=== PATIENT | male | born 2000 | race Caucasian/White ===

== ENCOUNTER → 2022-06-01 14:49 | Outpatient (CLI) | payer SELFPAY ==
--- NOTE | ~2022-06-01 | XR_ITS ---
EXAM: XR foot LT min 3V DATE: 06/01/2022 15:40 HISTORY: M25.572 - Pain in left ankle and joints of left foot . COMPARISON: X-ray ankle, same date. FINDINGS: Normal mineralization. Curvilinear osseous fragment along the superior margin of the navic ular. No lytic or blastic lesion. Joint spaces are maintained. No erosion or periosteal change. Soft tissues within normal limits. IMPRESSION: Calcaneonavicular capsular avulsion fracture, may be chronic or acute, correlate with his tory of remote or recent trauma. Reviewed, dictated and finalized at location K. LATORY ATTORNEY IMPRESSION: Calcaneonavicular capsular avulsion fracture, may be chronic or acu te, correlate with history of remote or recent trauma.
--- NOTE | ~2022-06-01 | XR_ITS ---
XR ankle LT min 3V 06/01/2022 15:40 INDICATION: Left ankle pain PROCEDURE: 4 views left ankle COMPARISON: No prior studies for comparison. FINDINGS: Fracture, dislocation or subluxation is not identified. Ankle mortise intact. There is mild lateral soft tissue swelling. No foreign bodies are identified. IMPRESSION: 1: NO ACUTE BONE OR JOINT ABNORMALITY IDENTIFIED. Reviewed, dictated and finalized at location B. NEERING FACULTY
== END ==
PROVIDERS: PCP Family Medicine Adolescent Medicine; Visit Provider Physician Assistant
DX: M25.572 Pain in left ankle and joints of left foot (principal); S92.002A Unspecified fracture of left calcaneus, initial encounter for closed fracture
CPT/HCPCS: 73610; 73630

== ENCOUNTER 2024-01-30 10:36 | Emergency (ER) | payer SELFPAY ==
[2024-01-30 10:45] VITALS: BP 132/77; PULSE 66; RESP 16; TEMP 36.7; O2SAT 99
--- NOTE | 2024-01-30 10:58 | ED.GENADULT ---
HPI - General Adult General Chief complaint: Ear Stated complaint: Ear Pain Time Seen by Provider: 01/30/24 10:59 Source: patient Mode of arrival: ambulatory Limitations: no limitations History of Present Illness HPI narrative: 23-year-old male patient presents to the [facility] with complaints of left-sided ear pain for the past 2-3 days. Patient states he has had some nasal congestion sinus pressure and a cough. Denies fevers, body aches or chills. Denies any abdominal pain, nausea, vomiting or diarrhea. Patient denies any chest pain or shortness of breath. Patient states he has only been taking some [id number] vitamins for his symptoms. Mother states he has had tubes in the past as a child. Related Data Allergies Allergy/AdvReac Type Severity Reaction Status Date / Time No Known Allergies Allergy Mild Verified 01/30/24 11:09 Review of Systems Review of Systems: CONSTITUTIONAL: Denies fever, chills, or sweats. EYES: Denies visual changes, redness, or discharge. ENT: Positive rhinorrhea, congestion, denies sore throat, positive left otalgia. CARDIOVASCULAR: Denies chest pain, palpitations, or edema. RESPIRATORY: positive cough denies dyspnea. GASTROINTESTINAL: Denies abdominal pain, nausea, vomiting, or diarrhea. GENITOURINARY: Denies dysuria or hematuria. SKIN: Denies rash or itching. MUSCULOSKELETAL: Denies back pain, joint pain, or myalgia. NEUROLOGIC: Denies headache, numbness, or weakness. PSYCHIATRIC: Denies anxiety or depression. [facility] Past Medical History Medical History (Updated 01/30/24 @ 11:19 by LILIYA Pagan) Asthma Avulsion fracture of navicular bone of foot with delayed healing Chalazion left lower eyelid Ingrown toenail of both feet Left serous otitis media Palpitations Surgical History Surgical History (Updated 01/30/24 @ 11:00 by LILIYA Pagan) H/O tympanostomy Social History Social History Smoking status: Former smoker Tobacco type: e-cigarettes/vaping Comments At the time of my signature I agree with nursing past medical history, surgical, social, and family history. There is no relevant family history pertinent to the presenting complaint. Exam Narrative: GENERAL: Well-appearing, well-nourished, and in no acute distress. HEAD: Normocephalic, atraumatic. EYES: PERRLA and EOMI. ENT: Nares clear, no rhinorrhea or epistaxis. Mucous membranes moist. posterior pharynx no erythema, tonsillar enlargement exudates or lesions present. The left ear canal is very swollen with white pus unable to visualize completely the canal is unable to visualize the tympanic membrane. The right ear canal does have some liquid he lacks noted to the canal and the tympanic membrane does appear bulgy and erythematous. NECK: Supple. No lymphadenopathy CHEST: Clear to auscultation. No respiratory distress. HEART: Regular rate and rhythm. No murmur heard. Normal peripheral pulses. ABDOMEN: Soft, nontender, nondistended, normal active bowel sounds. EXTREMITIES: Normal range of motion. No edema. SKIN: Warm, dry, no rash. NEURO: No focal deficits. Alert and oriented x3. Course Course Level of Care: Express Care Visit Vital Signs Vital signs: Vital Signs Temperature 36.7 C 01/30/24 10:45 Pulse Rate 66 01/30/24 10:45 Respiratory Rate 16 01/30/24 10:45 Blood Pressure 132/77 01/30/24 10:45 Pulse Oximetry 99 01/30/24 10:45 Temperature 36.7 C 01/30/24 10:45 Pulse Rate 66 01/30/24 10:45 Respiratory Rate 16 01/30/24 10:45 Blood Pressure 132/77 01/30/24 10:45 Pulse Oximetry 99 01/30/24 10:45 Vital signs reviewed. The patient has been informed that they may have pre-hypertension or Hypertension based on a BP reading in the department. I recommend that the patient call the primary care provider listed on their discharge instructions or a physician of their choice this week to arrange follow up for further evaluation of possible pre-hypertension or Hypertension Medical Decision Making MDM Narrative Medical decision making narrative: Plan of care for patient is to discharge home with oral antibiotics for a otitis media infection of the right ear as well as antibiotic ear drops for the left ear. Discussed with them I also recommend that he takes an [id number]-[id number] antihistamine something such as Zyrtec, Claritin or Porsha and may take Tylenol and ibuprofen as needed for the pain. Differential Diagnosis Differential Diagnosis: Differential diagnosis: Otitis media, otitis externa, perforated TM, infection of the outer ear, foreign body or cerumen impaction, ruptured TM, acute mastoiditis, ligament otitis externa, dehydration, pneumonia, sepsis, dental or intraoral infection, TMJ dysfunction Vital Signs Vital Signs: Vital Signs Temperature 36.7 C 01/30/24 10:45 Pulse Rate 66 01/30/24 10:45 Respiratory Rate 16 01/30/24 10:45 Blood Pressure 132/77 01/30/24 10:45 Pulse Oximetry 99 01/30/24 10:45 Temperature 36.7 C 01/30/24 10:45 Pulse Rate 66 01/30/24 10:45 Respiratory Rate 16 01/30/24 10:45 Blood Pressure 132/77 01/30/24 10:45 Pulse Oximetry 99 01/30/24 10:45 Critical Care Time Critical Care Time Critical Care Time: No Discharge Plan Discharge Clinical Impression: Left otitis externa, Acute right otitis media Patient Disposition: Home, Self-Care Condition: Stable Instructions: Antibiotic Form, Swimmer's Ear (ED), Ear Infection (ED) Additional Instructions: An ear infection is also called otitis media. An ear infection may be caused by blocked or swollen eustachian tubes. Eustachian tubes connect the middle ear to the back of the nose and throat. They drain fluid from the middle ear. With an ear infection, fluid builds up and is infected by germs. The germs grow easily in fluid trapped behind the eardrum. DISCHARGE INSTRUCTIONS: Call 911 or have someone call 911 for the following: You have a seizure. Return to the emergency department if: You have a fever and a stiff neck. Contact your healthcare provider if: Your ear pain gets worse or does not go away, even after treatment. The outside of your ear is red or swollen. You are vomiting or have diarrhea. You have fluid coming from your ear. You have questions or concerns about your condition or care. Medicines: Acetaminophen decreases pain and fever. It is available without a doctor's order. Ask how much to take and how often to take it. Follow directions. Read the labels of all other medicines you are using to see if they also contain acetaminophen, or ask your doctor or pharmacist. Acetaminophen can cause liver damage if not taken correctly. Do not use more than 4 grams (4,000 milligrams) total of acetaminophen in one day. NSAIDs , such as ibuprofen, help decrease swelling, pain, and fever. This medicine is available with or without a doctor's order. NSAIDs can cause stomach bleeding or kidney problems in certain people. If you take blood thinner medicine, always ask your healthcare provider if NSAIDs are safe for you. Always read the medicine label and follow directions. Ear drops help treat your ear pain. Antibiotics help treat a bacterial infection that caused your ear infection. Take your medicine as directed. Contact your healthcare provider if you think your medicine is not helping or if you have side effects. Tell him or her if you are allergic to any medicine. Keep a list of the medicines, vitamins, and herbs you take. Include the amounts, and when and why you take them. Bring the list or the pill bottles to follow-up visits. Carry your medicine list with you in case of an emergency. Prevent an ear infection: Wash your hands often. Use soap and water. Wash your hands after you use the bathroom, change a child's diapers, or sneeze. Wash your hands before you prepare or eat food. Handwashing Stay away from people who are ill. Some germs are easily and quickly spread through contact. Prescriptions: New amoxicillin-pot clavulanate 875-125 mg tablet 1 tablet PO Q12H 7 Days Qty: 14 0RF ofloxacin 0.3 % drops 10 drp EACH EAR DAILY 7 Days Qty: 10 0RF No Action metoprolol succinate 50 mg tablet extended release 24 hr 50 mg PO DAILY Qty: 30 5RF Follow-up/Referrals: Ubaldo Richardson MD [Primary Care Provider] - Time of Disposition: 11:20
== END 2024-01-30 11:21 | disposition home or self-care (01) ==
PROVIDERS: Emergency Provider Nurse Practitioner Family; PCP Family Medicine Adolescent Medicine
DX: H60.92 Unspecified otitis externa, left ear (principal); H66.91 Otitis media, unspecified, right ear; J45.909 Unspecified asthma, uncomplicated
CPT/HCPCS: 99213; G0463

== ENCOUNTER 2024-08-22 21:53 | Emergency (ER) | payer SELFPAY ==
[2024-08-22 21:55] VITALS: BP 127/96; PULSE 87; RESP 20; TEMP 36.5; O2SAT 100
--- OUTSIDE RECORDS SUMMARY | 2024-08-22 21:55 | XMS_ITS | Clinical Summary ---
Author Organization [facility] Address [address] [address] Care Team Providers Care Environmental Geologist Name Role Phone Unavailable Primary Care Provider Unavailabl e Source Comments [facility] [employer],non-owned Affiliates and Associated Physician Practices is amultiple site organization consisting of ambulatory clinics and hospital sitesin [place], [place], [place] and [place]. This disclosure is being madepursuant to the Care Everywhere program and may not contain all information available regarding this patient. 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 Gender Identity Not on file Sexual Orientation Not on file Plan of Treatment Health Maintenance Due Date Last Done Comments HIV SCREENING 2017 HPV VACCINE (1 - Male 3-dose series) 2017 MENINGOCOCCAL (Group B) VACC INE SHARED DECISION-MAKING (1 of 2 - Standard) 2018 HEPATITIS C SCREENING 08/28/2020 DTAP/TDAP/TD VACCINES (1 - Tdap) 2021 HEPATITIS B VACCINE (1 of 3 - 19+ 3-dose series) 2021 COVID-19 VACCINE (1 - 2023-2 5 season) 2023 DEPRESSION SCREENING 04/05/2024 INFLUENZA VACCINE (Season Ended) 2024 ZOSTER VACCINE (1 of 2) 2052 HIB VACCINE Aged Out No longer eligi ble based on patient's age to complete this topic MENINGOCOCCAL GROUPS A/C/Y/W VACCINE Aged Out No longer eligible b ased on patient's age to complete this topic PNEUMOCOCCAL VACCINE Aged Out No long er eligible based on patient's age to complete this topic
--- OUTSIDE RECORDS SUMMARY | 2024-08-22 21:55 | XMS_ITS | Continuity of Care Document ---
Author Organization [facility] Address [address] [place] [address] Phone Care Team Providers Care Crimp Setter Name Role Phone Ubaldo Grove Unavailable Unavailable Allergies, Adverse Reactions, Alerts Substance Reaction Status Criticality No Known Allergies Active No Inform ation Procedures Procedure Date OFFICE/OUTPATIENT VISIT EST RADEX FOOT COMPL MINIMUM 3 VIEWS 2023 OFFICE/OUTPATIENT VISIT NEW Advance Directives Directive Yes / No Effective Date File Name No Information Encounters Encounter Description Practice Location Reason(s) For Visit Diagnoses Date Provider Providers Copied on Encounter OFFICE/OUTPAT IENT VISIT EST [facility] , [address], [place], [address], [place] tel:[phone] [facility] [place] Kang's neuroma of left foot 0 5 [address]. [address], [place], [place], [id number] , [place]. tel:[phone] Referring Provider: Ubaldo Richardson S, [address] [place] [address], [address]. tel:[phone] OFFICE/OUTPAT IENT VISIT NEW [facility] , [address], [place], [address], [place] tel:[phone] [facility] Left foot painMorton' s neuroma of left foot 4 Roberto Carlos Garcia. [address], [place], [place], [id number] . tel: [phone] Referring Provider: Ubaldo Richardson S, [address] [place], [address]. tel:[phone] Family History Family Member Type Diagnosis Age At Onset No Information Payers Payer name Insurance type Covered democrat ID Authormahogany horton(s) No Information Social History Type Description Quantity Date Captured Comments Alcohol Use Details Unknown Caffeine Use Details Unknown Tobacco Use Status Current non-smoker Smoking Status Never smoker Non-Smoking Tobacco Use Details : No Details Available : No Details Available Sex Male Vital Signs Date / Time: Height Weight BMI Pulse Rate Blood Pressure Temperature Respiratory Rate Body Surface Area Head Circumference Head Circ. Percentile Wt./Hao. Percentile BMI percentile Pulse Ox Inhaled Ox 10:49 AM 72.00 in 70.307 kg (155.00 lbs) 21.0 2 kg/m eter (2) Chief Complaint And Reason For Visit No Information Reason For Referral Reason For Referral No Information Plan Of Treatment Date Type Action Status Referral Ordered: RADEX FOOT COMPL MINIMUM 3 VIEWS LT ordered History Of Present Illness Encounter Date Complaint History Of Prese nt Illness No Information Functional Status Date Functional Assessmen t No Information Instructions Date Instruction Additional Infor mation No Information Assessments Type Assessment Date assessment Kang's neuroma of left foot Fe Patient Care Teams Name Effective Dates (start - stop) Status Members No Information
--- OUTSIDE RECORDS SUMMARY | 2024-08-22 22:49 | XMS_ITS | Continuity of Care Document ---
Author Organization [facility] Address [address] [place] [address] Phone Care Team Providers Care Administration Intern Name Role Phone Ubaldo Grove Unavailable Unavailable [...] OFFICE/OUTPAT IENT VISIT EST [facility] , [address], [place], [address], [place] tel:[phone] [facility] [place] Kang's neuroma of left foot 0 5 [address]. [address], [place], [place], [id number] , [place]. tel:[phone] Referring Provider: Ubaldo Richardson S, [address] [place] [address], [address]. tel:[phone] OFFICE/OUTPAT IENT VISIT NEW [facility] , [address], [place], [address], [place] tel:[phone] [facility] Left foot painMorton' s neuroma of left foot 4 Roberto Carlos Garcia. [address], [place], [place], [id number] . tel: [phone] Referring Provider: Ubaldo Richardson S, [address] [place], [address]. tel:[phone] Family History Family Member Type Diagnosis Age At Onset No Information Payers Payer name Insurance type Covered green party ID Authormahogany horton(s) No Information Social History [...]
--- OUTSIDE RECORDS SUMMARY | 2024-08-22 22:50 | XMS_ITS | Clinical Summary ---
Author Organization [facility] Address [address] [place] [address] Care Team Providers Care Warehouse Packaging Supervisor Name Role Phone Unavailable Primary Care Provider Unavailabl e Source Comments [facility] [employer],non-owned Affiliates and Associated Physician Practices is amultiple site organization consisting of ambulatory clinics and hospital sitesin [place], [place], [place] and [place]. This disclosure is being madepursuant to the Care Everywhere program and may not contain all information available regarding this patient. 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
--- NOTE | 2024-08-22 23:34 | ED_ITS ---
HPI - Skin/Abscess/Foreign Bdy General Chief complaint: Skin/Abscess/Foreign Body Stated complaint: laceration to L forearm Time Seen by Provider: 08/22/24 22:43 History of Present Illness HPI narrative: 23-year-old male presents emergency department with brother and father at bedside for laceration to the dorsum of his left arm that occurred prior to arrival. Patient states he was working on his car and was trying to cut a piece of the river on his exhaust pipe when slipped and accidentally cut the dorsum of his left arm with a knife. Bleeding controlled. Tdap reportedly up-to-date. Denies other injuries. Patient does smell of EtOH in is clinically intoxicated. Admits to drinking a couple beers earlier today. Related Data Allergies Allergy/AdvReac Type Severity Reaction Status Date / Time No Known Allergies Allergy Mild Verified 08/22/24 21:54 Review of Systems Review of Systems: All systems reviewed & are unremarkable except as noted in HPI and below PMFSH Past Medical History Medical History Left serous otitis media Palpitations Avulsion fracture of navicular bone of foot with delayed healing Chalazion left lower eyelid Ingrown toenail of both feet Asthma Surgical History Surgical History H/O tympanostomy Social History Social History Smoking status: Former smoker Tobacco type: e-cigarettes/vaping Exam Narrative: GENERAL: Well-appearing, well-nourished, and in no acute distress. Smells of EtOH, clinically intoxicated, otherwise pleasant and cooperative, GCS 15 HEAD: Normocephalic, atraumatic. EYES: EOMI. ENT: Nares clear, no rhinorrhea or epistaxis. Mucous membranes moist. NECK: Supple. CHEST: Clear to auscultation. No respiratory distress. HEART: Regular rate and rhythm. No murmur heard. Normal peripheral pulses. EXTREMITIES: Normal range of motion. No edema. SKIN: 7cm laceration to the dorsum of the left forearm, with approximately 1 cm area of exposed adipose tissue, remainder of laceration is superficial in nature and does not extend beyond the dermis. No active bleeding. No deep structures or foreign bodies visualized. Patient has full active and passive range of motion of wrist. Radial, median and ulnar nerves are intact. Radial pulse 2 +. Sensation intact. NEURO: No focal deficits. Alert and oriented x3 Course Vital Signs Vital signs: Vital Signs Temperature 97.7 F 08/22/24 21:55 Pulse Rate 87 08/22/24 21:55 Respiratory Rate 20 08/22/24 21:55 Blood Pressure 127/96 H 08/22/24 21:55 Pulse Oximetry 100 08/22/24 21:55 Oxygen Delivery Room Air 08/22/24 21:55 Temperature 97.7 F 08/22/24 21:55 Pulse Rate 87 08/22/24 21:55 Respiratory Rate 20 08/22/24 21:55 Blood Pressure 127/96 H 08/22/24 21:55 Pulse Oximetry 100 08/22/24 21:55 Oxygen Delivery Room Air 08/22/24 21:55 Procedures Laceration Laceration 1: Date: 08/23/24 Time: 00:14 Site: upper extremity Side (If applicable): left Size (cm): 7 Description: linear Depth: simple, single layer Local Anesthetic: lidocaine 1% and with epi Amount of anesthesia used (mL): 6 Pre-repair: wound explored, irrigated and irrigated extensively ====== Skin Level ====== Skin layer closed with: nylon Size (cm): 4-0 Number of sutures: 8 Technique: simple, interrupted ====== Subcutaneous Layer ====== ====== Muscle Layer ====== ====== Tendon Layer ====== MDM - Skin/Abscess/Foreign Bdy MDM Narrative Medical decision making narrative: 23-year-old male presents emergency department for laceration to the dorsum of his left forearm that occurred prior to arrival. Patient was cutting a piece of assembler rubber footwear of his exhaust pipe and accidentally cut his arm with a knife. Vitals are stable. Exam significant for the above. Patient is neurovascularly intact. Bleeding is controlled. Tdap is reportedly up-to-date. Laceration irrigated extensively with normal saline and closed as noted above. Patient was advised to have sutures removed in 7 days and given strict ED return precautions including signs or symptoms of infection. His brother is at bedside and feels safe taking the patient home under his care. All questions answered. Patient discharged in stable condition. Discharge Plan Discharge Clinical Impression: Laceration Patient Disposition: Home Condition: Stable Instructions: Antibiotic Form, Laceration (DC) Additional Instructions: You were evaluated in the emergency department for a laceration to her left forearm. Eight stitches were placed. Please get these removed in 7 days by urgent care, ER or your primary care. Return to the emergency department sooner if you develop a fever, surrounding redness, drainage, or other concerning symptoms. Patient Language: Cay[place] Islander Prescriptions: No Action metoprolol succinate 50 mg tablet extended release 24 hr 50 mg PO DAILY Qty: 30 5RF levofloxacin 500 mg tablet 500 mg PO DAILY Qty: 10 0RF Follow-up/Referrals: Ubaldo Richardson MD [Primary Care Provider] -
[2024-08-23] MEDS: LIDO 1%/EPINEPHRINE 1:100,000 20 ML VIAL 10 ML INFILTRATE (00:06)
[2024-08-23 00:46] VITALS: BP 122/78; PULSE 86; RESP 19; TEMP 36.2; O2SAT 97
== END 2024-08-23 00:47 | disposition home or self-care (01) ==
PROVIDERS: Emergency Provider Physician Assistant; PCP Family Medicine Adolescent Medicine
DX: S51.812A Laceration without foreign body of left forearm, initial encounter (principal); J45.909 Unspecified asthma, uncomplicated; Z87.891 Personal history of nicotine dependence; W26.0XXA Contact with knife, initial encounter
CPT/HCPCS: 12002; 99282; J2004

== ENCOUNTER 2024-09-16 20:50 | Emergency (ER) | payer SELFPAY ==
--- NOTE | ~2024-09-16 | CT_ITS ---
History: Fall, with loss of consciousness PROCEDURE: CT cervical spine without intravenous contrast. COMPARISON: None TECHNIQUE: Multiple contiguous axial images of the cervical spine were performed without the administration of i ntravenous contrast. DLP: 344 mGy-cm FINDINGS: Straightening and slight reversal of the normal curvature of the cervical spine is identified, likely muscular in origin. No acute fractures are present. The bilateral lung apices are unremarkable. No soft tissue abnormality is present. The airway is unremarkable. Impression: Straightening and slight reversal of the normal curvature of the cervical spine, likely muscular in o rigin. No acute fracture. Reviewed, dictated and finalized at location A. Impression: Straightening and slight reversal of the normal curvature of the cervical spine , likely muscular in origin. No acute fracture.
--- NOTE | ~2024-09-16 | CT_ITS ---
History: Fall PROCEDURE: CT head without contrast. COMPARISON: None TECHNIQUE: Axial imaging of the head performed from the skull base to the vertex without IV contrast. Sagittal a nd coronal reformations obtained. DLP: 681 mGy-cm FINDINGS: The ventricles are normal in size, shape and position. There is no mass, mass effect or midline shift. There is no abnormal extra-axial fluid collection or intracranial hemorrhage. Visualized paranasal sinuses are clear. The mastoid air cells are well aerated. No acute displaced fractures within the overlying cranium. Impression: No acute intracranial hemorrhage or suspicious mass effect. Reviewed, dictated and finalized at location A. Impression: No acute intracranial hemorrhage or suspicious mass effect.
--- OUTSIDE RECORDS SUMMARY | 2024-09-16 20:52 | XMS_ITS | Continuity of Care Document ---
Author Organization [facility] Address [address] [place] [address] Phone Care Team Providers Care Acquisition Advisor Name Role Phone Ubaldo Grove Unavailable Unavailable [...] OFFICE/OUTPAT IENT VISIT EST [facility] , [address], [place], [address], [place] tel:[phone] [facility] [place] Kang's neuroma of left foot 0 [address]. [address], [place], [place], [id number] , [place]. tel:[phone] Referring Provider: Ubaldo Richardson S, [address] [place] [address], [address]. tel:[phone] OFFICE/OUTPAT IENT VISIT NEW [facility] , [address], [place], [address], [place] tel:[phone] [facility] Left foot painMorton' s neuroma of left foot 4 [address] Garcia. [address], [place], [place], [id number] . tel: [phone] Referring Provider: Ubaldo Richardson S, [address] [place], [address]. tel:[phone] Family History Family Member Type Diagnosis Age At Onset No Information Payers Payer name Insurance type Covered libertarian ID Authormahogany horton(s) No Information Social History [...]
--- OUTSIDE RECORDS SUMMARY | 2024-09-16 20:52 | XMS_ITS | Clinical Summary ---
Author Organization [facility] Address [address] [place] [address] Care Team Providers Care Manager Water Wastewater Name Role Phone Unavailable Primary Care Provider Unavailabl e Source Comments [facility] [employer],non-owned Affiliates and Associated Physician Practices is amultiple site organization consisting of ambulatory clinics and hospital sitesin [place], [place], [place] and [place]. This disclosure is being madepursuant to the Care Everywhere program and may not contain all information available regarding this patient. 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
[2024-09-16 20:53] VITALS: BP 149/88; PULSE 72; RESP 18; TEMP 36.6; O2SAT 98
--- OUTSIDE RECORDS SUMMARY | 2024-09-16 21:07 | XMS_ITS | Continuity of Care Document ---
Author Organization [facility] Address [address] [place] [address] Phone Care Team Providers Care Trout Farmer Name Role Phone Ubaldo Grove Unavailable Unavailable [...] OFFICE/OUTPAT IENT VISIT EST [facility] , [address], [place], [address], [place] tel:[phone] [facility] [place] Kang's neuroma of left foot 0 [address]. [address], [place], [place], [id number] , [place]. tel:[phone] Referring Provider: Ubaldo Richardson S, [address] [place] [address], [id number]. tel:[phone] OFFICE/OUTPAT IENT VISIT NEW [facility] , [address], [place], [address], [place] tel:[phone] [facility] Left foot painMorton' s neuroma of left foot 4 [address] Garcia. [address], [place], [place], [id number] . tel: [phone] Referring Provider: Ubaldo Richardson S, [address] [place], [address]. tel:[phone] Family History Family Member Type Diagnosis Age At Onset No Information Payers Payer name Insurance type Covered republican ID Authormahogany horton(s) No Information Social History [...]
[2024-09-16] MEDS: TETANUS,DIPHTHERIA,AC PERTUSSIS ADULT (0.5 ML) BOOSTRIX IM (21:23)
--- NOTE | 2024-09-16 21:23 | ED_ITS ---
HPI - Wound/Laceration General Chief Complaint: Wound/Laceration Stated Complaint: laceration Time Seen by Provider: 09/16/24 20:53 Source: patient Mode of arrival: ambulatory Limitations: no limitations History of Present Illness HPI narrative: This is a 24 year old male that presents to the ER for laceration to the lip sustained just prior to arrival. Reports he slipped and fell into his new deck he just built. He hit his face. He did not lose consciousness. Reports laceration to the lip. Unsure of last tetanus vaccination. Denies vomiting, numbness, weakness. Related Data Allergies Allergy/AdvReac Type Severity Reaction Status Date / Time No Known Allergies Allergy Mild Verified 08/30/24 08:03 Review of Systems Review of Systems: CONSTITUTIONAL: Denies fever EYES: Denies visual changes GASTROINTESTINAL: Denies vomiting NEUROLOGIC: Denies numbness, or weakness. All systems reviewed & are unremarkable except as noted in HPI and below PMFSH Past Medical History Medical History Left serous otitis media Palpitations Avulsion fracture of navicular bone of foot with delayed healing Chalazion left lower eyelid Ingrown toenail of both feet Asthma Surgical History Surgical History H/O tympanostomy Social History Social History Smoking status: Former smoker Tobacco type: e-cigarettes/vaping Exam Narrative: GENERAL: Well-appearing, well-nourished, and in no acute distress. HEAD: Normocephalic. Large flap laceration to the bottom lip. Additional 1.5cm linear laceration to the chin into subcutaneous tissue EYES: PERRLA and EOMI. ENT: Nares clear, no rhinorrhea or epistaxis. Mucous membranes moist. Oropharynx without tonsillar hypertrophy exudate or other lesions. NECK: Supple. No adenopathy or masses. CHEST: Clear to auscultation. No respiratory distress. No wheezes rales or rhonchi HEART: Regular rate and rhythm. No murmur heard. Normal peripheral pulses. EXTREMITIES: Normal range of motion. No edema or obvious deformity. SKIN: Warm, dry, no rash. NEURO: No focal deficits. Alert and oriented x3. Cranial nerves 2-12 grossly intact. Normal gait PSYCH: Normal mood and affect Course Course Emergency Course: Patient and family updated on workup and plan of care. Family member will drive him to the ER Consultations Consultation #1: Spoke with Dr. Chavarria, plastics at [facility]. Recommends transfer to the ER. Dr. Cuello accepts the patient as transfer Date: 09/16/24 Vital Signs Vital signs: Vital Signs Temperature 97.8 F 09/16/24 20:53 Pulse Rate 72 09/16/24 20:53 Respiratory Rate 18 09/16/24 20:53 Blood Pressure 149/88 H 09/16/24 20:53 Pulse Oximetry 98 09/16/24 20:53 Oxygen Delivery Room Air 09/16/24 20:53 Temperature 97.8 F 09/16/24 22:56 Pulse Rate 65 09/16/24 22:56 Respiratory Rate 18 09/16/24 22:56 Blood Pressure 143/89 H 09/16/24 22:56 Pulse Oximetry 97 09/16/24 22:56 Oxygen Delivery Room Air 09/16/24 20:53 MDM - Wound/Laceration MDM Narrative Medical decision making narrative: Patient presents to the emergency department after a fall today with head injury. He is neurologically intact. His vitals are stable. CT brain, cervical spine, facial bones without acute findings. Patient's wounds were cleansed. Updated on tetanus vaccination. He does have a very complex laceration of his lip which I feel would be more appropriately managed by a plastic surgeon. Spoke with Dr. Chavarria, plastics at [facility]. Recommends transfer to the ER. Dr. Cuello accepts the patient as transfer Differential Diagnosis Differential diagnosis: Likely laceration, abrasion, avulsion of skin and other (head trauma, facial fracture, concussion) Imaging Data Radiologist's impression: ITS Impressions Head CT 09/16/24 21:49 Impression: No acute intracranial hemorrhage or suspicious mass effect. Head/Cervical Spine/Facial Bones CT 09/16/24 21:50 Impression: Straightening and slight reversal of the normal curvature of the cervical spine, likely muscular in origin. No acute fracture. Critical Care Time Critical Care Time Critical Care Time: No Discharge Plan Discharge Clinical Impression: Complicated laceration of lip Qualifiers: Encounter type: initial encounter Qualified Code(s): S01.511A - Laceration without foreign body of lip, initial encounter Head injury Qualifiers: Encounter type: initial encounter Qualified Code(s): S09.90XA - Unspecified inj ury of head, initial encounter Patient Disposition: Acute Care Hospital Condition: Stable Additional Instructions: You were given a tetanus vaccination in our ER. Your imaging of your brain, face and neck did not show any broken bones, or other traumatic findings Report directly to [facility]. [address] [facility]. Do not eat or drink anything Patient Language: Mongolian Prescriptions: No Action albuterol sulfate [Ventolin HFA] 90 mcg/actuation HFA aerosol inhaler 2 puff inhalation Q4H PRN (Reason: shortness of breath or wheezing) Qty: 8.5 2RF Follow-up/Referrals: Ubaldo Richardson MD [Primary Care Provider] -
--- NOTE | 2024-09-16 22:53 | PC.NURSE ---
Patient offered transfer to [facility]. Patient refused transfer and will be using a private vehicle for transfer to [facility]. Imaging results printed and images placed in a disc for patient to bring to [facility].
[2024-09-16 22:56] VITALS: BP 143/89; PULSE 65; RESP 18; TEMP 36.6; O2SAT 97
== END 2024-09-16 23:03 | disposition short-term general hospital (02) ==
PROVIDERS: Emergency Provider Physician Assistant; PCP Family Medicine Adolescent Medicine
DX: S01.511A Laceration without foreign body of lip, initial encounter (principal); S01.81XA Laceration without foreign body of other part of head, initial encounter; J45.909 Unspecified asthma, uncomplicated; Z23 Encounter for immunization; Z87.891 Personal history of nicotine dependence; W01.0XXA Fall on same level from slipping, tripping and stumbling without subsequent striking against object, initial encounter
CPT/HCPCS: 70450; 70486; 72125; 90471; 90715; 99284